=== PATIENT | male | born 2000 | race Caucasian/White ===

== ENCOUNTER 2023-06-05 10:34 | Emergency (ER) | payer OTHER, SELFPAY ==
[2023-06-05 10:42] VITALS: BP 122/76
--- NOTE | 2023-06-05 11:53 | ED.GENMED ---
History of Present Illness
General
Chief Complaint: Oral/Mouth Problem
Source: patient and family (Mother at bedside)
Exam Limitations: none
Time Seen by Provider: 06/05/23 11:23
Nursing documentation reviewed up to this point in time: agreed with
Travel History
Have you had any contact with someone who has COVID-19?: No
Do you have any symptoms of coronavirus? Fever > 100 degrees, chills, cough, shortness of breath, sore throat, loss of taste or smell, muscle aches, or headache?: No
History of Present Illness
History of Present Illness:
22 yo male with swelling of lymph nodes right side of his neck for the past 7 days. He was started on Augmentin 875 twice daily and is on day #4 and the swelling of his lymph nodes as well as the inside of his mouth on the right side including the
right side of his tongue, the soft tissue underneath that and the soft tissue behind his molars is swollen. He had pus drainage from the inside of his mouth earlier today. He states pain radiates up to his right ear. He denies fever or chills.
Denies nausea or vomiting. Denies headache.
Past History
Past History
ED Past Medical History: Psychiatric (depression)
ED Past Surgical History: Other (wisdom teeth)
Social History
Tobacco: Non-smoker
Alcohol: None
Personal: Single
Living: with family
Employment: Employed
Review of Systems
Review of Systems
Allergies reviewed?: Yes
All Other Systems: ROS reviewed and negative except as documented in HPI and ROS
Constitutional: Denies fever, fatigue or chills
EENT: Reports mouth pain and mouth swelling; Denies sore throat
Respiratory: Denies trouble breathing
ABD/GI: Denies nausea or vomiting
Musculoskeletal: Reports no symptoms
Skin: Reports no symptoms
Neurological: Reports no symptoms
Phy Exam
Physical Exam
Physical Exam:
GENERAL: No acute distress. A&Ox3.
CONSTITUTIONAL: Afebrile.
EYES: Clear, conjunctivae normal
Neck: Supple, significant swelling and mild tenderness of right submandibular and cervical lymph nodes.
ENMT: moist mucus membranes, Pharynx nl, there is right-sided tongue swelling with a deep fissure on the underside of the tongue. Mild right subungual swelling and tenderness, no ulcerations or lesions
Swelling and tenderness of the retro molar trigone, No drainage.No trismus. Speaking and swallowing well.
RESPIRATORY: Regular respirations, nonlabored, lungs clear.
CARDIOVASCULAR: Regular rate and rhythm, no murmurs, no rubs.
GI: Soft, nontender, normal BS
MUSCULOSKELETAL: Moves with ease. Well perfused.
SKIN: Warm, dry, pink
PSYCH: Normal mood and affect. Well kept, interactive and appropriate
NEUROLOGIC: Awake, alert and oriented. No focal neurological deficits
Course
Orders/Labs/Results
Orders:
Orders
06/05/23 11:48
CT Neck With Iv Contrast Urgent
Comment: Please include tongue base per Dr. Melo
Reason For Exam: swelling right neck, under tongue on R, R tongue
0.9% Sodium Chloride 1000 ml [Nss] 1,000 ml IV BOLUS
06/05/23 11:52
Ketorolac [Toradol] 15 mg IV NOW STA
06/05/23 11:54
Complete Blood Count/With Diff Urgent
Comprehensive Metabolic Panel Urgent
06/05/23 15:14
Dexamethasone [Decadron] 10 mg PO NOW STA
Abnormal Lab Results
06/05/23
11:54
MCH 31.3 H pg
(27.0-31.0)
Absolute Monos (auto) 0.8 H 10^3/uL
(0.1-0.6)
Lymphocytes % 15.8 L %
(20.5-51.1)
Total Bilirubin 1.5 H mg/dl
(0.2-1.3)
06/05/23 11:54
06/05/23 11:54
Vital Signs
Initial and Last Documented VS:
Initial Vital Signs
Temp Pulse Resp BP Pulse Ox
98.4 F 82 20 122/76 99
06/05/23 10:42 06/05/23 10:42 06/05/23 10:42 06/05/23 10:42 06/05/23 10:42
Last Documented Vital Signs
Temp Pulse Resp BP Pulse Ox
98.4 F 68 16 121/88 99
06/05/23 10:42 06/05/23 15:23 06/05/23 15:23 06/05/23 15:23 06/05/23 15:23
MDM/Problems Addressed
Differential Diagnosis Includes:
Retropharyngeal abscess, peritonsillar abscess, mastoiditis
MDM/Problems Addressed:
22 yo male with swelling of lymph nodes right side of his neck for the past 7 days. He was started on Augmentin 875 twice daily and is on day #4 and the swelling of his lymph nodes as well as the inside of his mouth on the right side including the
right side of his tongue, the soft tissue underneath that and the soft tissue behind his molars is swollen. He had pus drainage from the inside of his mouth earlier today. He states pain radiates up to his right ear. He denies fever or chills.
Denies nausea or vomiting. Denies headache.
Afebrile
No airway compromise
2:00 PM
CBC with no clinically significant abnormality
CMP with no clinically significant abnormality
CT neck including the lower part of the right side of the mouth as discussed with radiologist Dr. Wileyzo report read: IMPRESSION:
There is a 14 mm partially obstructing right sided Warthin's duct calculus with minimal/borderline ductal dilatation at the hilum of the right submandibular gland and mild right periglandular inflammatory stranding
Consulted ENT Dr. Diamond who agrees with sialadenitis with stone. She gave specific instructions via text I copied and pasted to pt discharge instructions.
*Critical Care Note
Total Time (30-74mins, 75-104mins- exclusive of procedures): Not Applicable
ED Attending Note
-
Portions of this chart may have been created with voice recognition software.� Occasional wrong word or��sound alike� substitutions may have occurred due to the inherent limitations of voice recognition software.
Discharge Plan
Departure
Patient Disposition: Home (Routine Discharge)
Date of Disposition: 06/05/23
Time of Disposition: 15:13
Patient with high blood pressure during this ER visit?: No
Condition: Fair
Discharge Problem:
Sialadenitis, Sialadenitis with stone
Instructions: Salivary Gland Stones
Prescriptions:
New
prednisone 20 mg tablet
40 mg PO DAILY Qty: 10 0RF
Referrals:
Kassy Fuentes DO [Family Provider] -
Lizzeth Diamond MD [Active] - Tomorrow
Activity Restrictions/Additional Instructions:
Looks like a submandibular sialadenitis with a stone. He should stay on the Augmentin and start a course of prednisone. He should increase hydration and start sucking on a lemon wedge once daily. He should massage the gland and apply heat. We can
try to remove the stone in the office once the infection cools off. The augmentin is just one piece of what will make it better but the heat, massage, hydration and homar are really what makes the swelling go down faster.
Massage should be as often as possible and heat at least 3 times per day w a heating pad
I sent a prescription to your pharmacy for prednisone 40 mg a day for 5 days. Started tomorrow as you were given a dose of steroid here today called Decadron.
Call Dr. Diamond's office tomorrow and ask when they want to see you for follow-up.
Interventions
Interventions:
*Risk Screen - Suicide Last Done: 06/05/23 11:46
*General Assessment Last Done: 06/05/23 11:46
*Neglect/Abuse Screening Last Done: 06/05/23 11:46
ED- Fall Risk Assessment Last Done: 06/05/23 10:55
*ED COVID-19 Vaccine History Last Done: 06/05/23 10:55
*Nursing Disposition Last Done: 06/05/23 15:23
Discharge Date and Time
Discharge Date/Time: 06/05/23 15:24
Print Language: FRENCH
[2023-06-05] MEDS: TORADOL 15 MG IV (11:57)
[2023-06-05] MEDS: NSS 1000 IV (11:59)
[2023-06-05 12:01] LABS: % Basophils 0.2 % (0-2); % Eosinophils 2.7 % (0-6); % Immature Granulocytes 0.1 % (0-0.5); % Lymphocytes 15.8 % (20.5-51.1); % Monocytes 9.2 % (1.7-9.3); Absolute Eosinophils 0.2 10^3/uL (0-0.7); Absolute Lymphocytes 1.4 10^3/uL (1.2-3.4); Absolute Monocytes 0.8 10^3/uL (0.1-0.6); Absolute Neutrophils 6.3 10^3/uL (1.4-6.5); Hemoglobin 15.7 g/dL (13.0-18.0); Mean Corp Hgb Conc. 35.7 g/dL (33.0-37.0); Mean Corpuscular Hgb 31.3 pg (27.0-31.0); Mean Corpuscular Volume 87.6 fL (80.0-94.0); Mean Platelet Volume 9.7 fL (7.4-10.4); Nucleated Red Blood Cells % 0 % (-); Platelet Count 247 10^3/uL (130-400); Red Blood Cell Count 5.02 10^6/uL (4.70-6.10); Red Cell Dist. Width 11.6 % (11.5-14.5); White Blood Cell Count 8.8 10^3/uL (4.8-10.8)
[2023-06-05 12:16] LABS: ALT (SGPT) 25 U/L (0-50); AST (SGOT) 24 U/L (17-59); Albumin 4.9 g/dl (3.5-5.0); Alkaline Phosphatase 70 U/L (38-126); Blood Urea Nitrogen 13 mg/dl (9-20); Calcium 9.8 mg/dl (8.4-10.2); Carbon Dioxide 29 mmol/L (22-30); Chloride 103 mmol/L (98-107); Glucose 93 mg/dl (70-99); Potassium 4.5 mmol/L (3.5-5.1); Sodium 137 mmol/L (135-145); Total Bilirubin 1.5 mg/dl (0.2-1.3); Total Protein 7.7 g/dl (6.3-8.2); eGFR > 60.00
[2023-06-05 13:02] VITALS: BP 136/80
[2023-06-05 14:18] VITALS: BP 128/76
[2023-06-05] MEDS: DECADRON 10 MG PO (15:20)
[2023-06-05 15:23] VITALS: BP 121/88
== END 2023-06-05 15:24 | disposition home or self-care (01) ==
LOC: EMR 10:34
PROVIDERS: Registered Nurse; EMERGENCY PHYSICIAN Emergency Medicine; FAMILY PHYSICIAN Family Medicine
DX: K11.21 Acute sialoadenitis (principal)
CPT/HCPCS: 99285; 96374; 96361; 70491; 80053; 85025; Q9967